=== PATIENT | female | born 1965 | race Hispanic/Latino ===

== ENCOUNTER 2017-11-10 14:29 | Outpatient (CLI) | payer OTHER | END 2017-11-10 14:30 | disposition home or self-care (01) | LOC: BICMAMMO 14:29 | PROVIDERS: ATTEND Family Medicine | DX: Z12.31 Encounter for screening mammogram for malignant neoplasm of breast (principal); Z80.3 Family history of malignant neoplasm of breast | CPT/HCPCS: 77063; 77067 ==

== ENCOUNTER 2018-05-20 19:30 | Outpatient (CLI) | payer OTHER | END 2018-05-20 19:31 | disposition home or self-care (01) | LOC: SLEEPLAB 19:30 | PROVIDERS: ATTEND Family Medicine | DX: G47.33 Obstructive sleep apnea (adult) (pediatric) (principal); R06.83 Snoring | CPT/HCPCS: 95811 ==

== ENCOUNTER 2019-11-07 08:11 | Outpatient (CLI) | payer OTHER ==
--- NOTE | 2019-11-07 10:43 | BD ---
BONE DENSITOMETRY: Date: 11/07/2019 HISTORY: Postmenopausal osteoporosis screening. FINDINGS: Lumbar Spine: BMD (g/cm2) L1 0.976 T-Score: -0.1 L2 1.008 T-Score: -0.2 L3 1.094 T-Score: 0.1 L4 1.113 T-Score: 0.5 L1-L4 1.051 T-Score: 0.0 Femoral Neck: 0.888 T-Score: 0.4 Total Femur: 1.105 T-Score: 1.3 IMPRESSION: Bone mineral density of lumbar spine and femoral neck are both within normal range. POS: AGW
== END 2019-11-07 08:12 | disposition home or self-care (01) ==
LOC: BICMAMMO 08:11
PROVIDERS: ATTEND Advanced Practice Midwife
DX: Z13.820 Encounter for screening for osteoporosis (principal)
CPT/HCPCS: 77080

== ENCOUNTER 2020-09-24 08:59 | Outpatient (CLI) | payer OTHER | END 2020-09-24 09:00 | disposition home or self-care (01) | LOC: BICRAD 08:59 | PROVIDERS: ATTEND Family Medicine | DX: M54.6 Pain in thoracic spine (principal); M43.9 Deforming dorsopathy, unspecified; M51.35 Other intervertebral disc degeneration, thoracolumbar region | CPT/HCPCS: 72072 ==